=== PATIENT | female | born 1955 | race Two or more races ===

== ENCOUNTER → 2020-12-18 | Outpatient (CLI) | payer MEDICARE | END | disposition home or self-care (01) | LOC: RADMRIMAIN 08:39 | PROVIDERS: ATTEND Nurse Practitioner Family | DX: Z53.9 Procedure and treatment not carried out, unspecified reason (principal) ==

== ENCOUNTER → 2023-05-23 | Outpatient (CLI) | payer MEDICARE ==
[2023-05-23 17:29] LABS: ALT 21 U/L (8-44); AST 21 U/L (13-35); Albumin 4.4 d/dL (3.8-4.9); Albumin/Globulin Ratio 1.83 Ratio (1.60-3.17); Alkaline Phosphatase 83 U/L (41-126); BUN/Creat Ratio 16.57 Ratio (12.00-20.00); Blood Urea Nitrogen 11.6 mg/dL (9.0-27.0); Calcium 9.8 mg/dL (8.7-10.3); Carbon Dioxide 26.5 mmol/L (21.6-31.8); Chloride 105 mmol/L (96-109); Chol/HDL Ratio 3.54 Ratio; Globulin 2.4 d/dL (1.6-3.3); Glucose 97 mg/dL (70-110); Potassium 4.4 mmol/L (3.5-5.5); Sodium 143 mmol/L (135-145); Total Bilirubin 0.5 mg/dL (0.3-1.2); Total Protein 6.8 d/dL (6.2-8.2)
== END | disposition home or self-care (01) ==
LOC: LABWHC1 09:53
PROVIDERS: ATTEND Nurse Practitioner Family
DX: I10 Essential (primary) hypertension (principal); E78.5 Hyperlipidemia, unspecified; E66.9 Obesity, unspecified; R73.09 Other abnormal glucose
CPT/HCPCS: 36415; 80053; 80061; 82306; 82607; 82746; 83036; 84443; 85025

== ENCOUNTER → 2023-05-25 | Outpatient (CLI) | payer MEDICARE ==
[2023-05-25 15:54] LABS: Basophils # (A) 0.05 X 10*3/uL (0.00-0.10); Basophils % (A) 0.6 %; Eosinophils # (A) 0.19 X 10*3/uL (0.04-0.35); Eosinophils % (A) 2.2 %; HCT 43.1 % (37.2-46.3); HGB 13.9 d/dL (12.0-15.0); Lymphocytes # (A) 2.23 X 10*3/uL (0.90-5.00); Lymphocytes % (A) 25.3 %; MCH 29.5 pg (27.0-32.0); MCHC 32.3 d/dL (32.0-37.0); MCV 91.5 FL (80.0-97.0); Mean Platelet Volume 10.9 FL (9.5-12.2); Monocytes # (A) 0.72 X 10*3/uL (0.20-1.00); Monocytes % (A) 8.2 %; NRBC Per 100 WBC 0 X 10*3/uL (0.00-0.01); Neutrophils # (A) 5.61 X 10*3/uL (1.80-7.70); Neutrophils % (A) 63.5 %; Platelet Count 286 X 10*3/uL (140-440); RBC 4.71 X 10*6/uL (4.10-5.20); RDW 12.6 % (11.5-14.5); WBC 8.82 X 10*3/uL (4.50-10.00)
== END | disposition home or self-care (01) ==
LOC: LABWHC1 09:05
PROVIDERS: ATTEND Nurse Practitioner Family
DX: I10 Essential (primary) hypertension (principal); E78.5 Hyperlipidemia, unspecified; E66.9 Obesity, unspecified; R73.09 Other abnormal glucose
CPT/HCPCS: 36415; 85025

== ENCOUNTER → 2024-03-06 | Day surgery (SDC) | payer MEDICARE ==
[~2024-03-06] MED LIST: PROPOFOL 10 MG/ML 20 ML VIAL IV ONE
--- NOTE | 2024-03-06 08:07 | P.GSHP ---
History of Present Illness H&P Date: 03/06/24 CHIEF COMPLAINT: Colon screen HISTORY OF PRESENT ILLNESS: The patient is a 68-year-old female who presents for colon screen. Lower endoscopy was offered for further evaluation and management. PAST MEDICAL HISTORY: Please see list. PAST SURGICAL HISTORY: Please see list. MEDICATIONS: Please see list. ALLERGIES: Please see list. SOCIAL HISTORY: No illicit drug use FAMILY HISTORY: No reports of Crohn disease or ulcerative colitis. REVIEW OF ORGAN SYSTEMS: CONSTITUTIONAL: No reports of fevers or chills. PHYSICAL EXAM: VITAL SIGNS: Stable GENERAL: Well-developed pleasant in no acute distress. HEENT: No scleral icterus. Extraocular movements grossly intact. Moist buccal mucosa. NECK: Supple without lymphadenopathy. CHEST: Unlabored respirations. Equal bilateral excursions. CARDIOVASCULAR: Regular rate and rhythm. Distal 2+ pulses. ABDOMEN: Soft, nontender, nondistended. MUSCULOSKELETAL: No clubbing, cyanosis, or edema. ASSESSMENT: 1. Colon screen. PLAN: 1. Recommend proceeding with a lower endoscopy Past Medical History Past Medical History: Eye Disorder, Hyperlipidemia, Hypertension Additional Past Medical History / Comment(s): early macular degeneration History of Any Multi-Drug Resistant Organisms: None Reported Past Surgical History: Appendectomy, Hysterectomy Additional Past Surgical History / Comment(s): colonoscopy Past Anesthesia/Blood Transfusion Reactions: No Reported Reaction Smoking Status: Former smoker - Past Family History Father Family Medical History: Cancer Additional Family Medical History / Comment(s): of lung cancer Sister(s) Family Medical History: Diabetes Mellitus Medications and Allergies Home Medications Medication Instructions Recorded Confirmed Type Amlodipine Besylate/Valsartan 1 tab PO QAM 03/04/24 03/04/24 History [Amlodipine Besylate/Valsartan 10-160 mg] Aspirin [[place] Aspirin EC] 81 mg PO QAM 03/04/24 03/04/24 History Calcium Carbonate [Calcium] 2 tab PO QAM 03/04/24 03/04/24 History Cholecalciferol (Vitamin D3) 50 mcg PO QAM 03/04/24 03/04/24 History [Vitamin D3 (50 Mcg = 2000 Iu) Chew Tab] Multivit/Iron Sulf/Folic Acid 1 each PO QA 03/04/24 03/04/24 History [Multivitamin with Iron] Rosuvastatin Calcium 10 mg PO 03/04/24 03/04/24 History Vit C/E/Zn/Coppr/Lutein/Zeaxan 2 tab PO QAM 03/04/24 03/04/24 History [Preservision Areds 2 Softgel] Allergies Allergy/AdvReac Type Severity Reaction Status Date / Time No Known Allergies Allergy Verified 03/04/24 11:36
[2024-03-06 08:18] VITALS: TEMP 96.9
[2024-03-06] MEDS: LACTATED RINGERS 1,000 ML IV SCH (08:20)
--- NOTE | 2024-03-06 09:28 | P.PCN ---
Date of Procedure: 03/06/24 Description of Procedure: PREOPERATIVE DIAGNOSIS: Personal history of colon polyps Colonoscopy screening POSTOPERATIVE DIAGNOSIS: Tubular adenoma ascending colon Tubular adenoma sigmoid colon Pandiverticulosis Sigmoid diverticulosis, severe Internal and external hemorrhoids, grade 4 OPERATION: Colonoscopy to the ileocecal valve and appendiceal orifice, cecum Colonoscopy with cold forceps biopsy SURGEON: Erika Dukes MD. ANESTHESIA: MAC. INDICATIONS: The patient is an 68-year-old female who personal history of colon polyps. Last colonoscopy 5 years. Benefits and risks were described and informed consent was obtained. DESCRIPTION OF PROCEDURE: The patient had undergone SuFLAVE prep. The patient had been brought into the operating room and laid in the left lateral decubitus position. After adequate intravenous sedation, the rectum was examined with 2% lidocaine jelly.External hemorrhoids were encountered. The rectal tone was within normal limits. No lesions were palpated in the rectal vault. An Olympus colonoscope was advanced until the cecum, ileocecal valve and appendiceal orifice were clearly viewed. The prep was fair. Sigmoid diverticulosis, severe was encountered. Pandiverticulosis colonic polyps were found and removed. No evidence of focal colitis was found. Retroflexion of the scope demonstrated grade 4 internal hemorrhoids without active bleeding or inflammation. The colon was desufflated. The patient had tolerated the procedure well. Withdrawal time was over 6 minutes. FINDINGS: Aronchick preparation quality scale 3 (1-5) Internal hemorrhoids, grade 4 with recent inflammation and bleeding External hemorrhoids, grade 4. No arteriovenous malformations. Sigmoid diverticulosis, severe Pandiverticulosis Removal of 2 polyps: - Cold forcep biopsies 20 cm from the anal verge, 5 mm tubulovillous adenoma, sigmoid colon - Cold forcep biopsy ascending colon, ascending colon No focal colitis. RECOMMENDATIONS: 1. Repeat colonoscopy 3 years, 2026 2. May benefit from hemorrhoidectomy, stapled Plan - Discharge Summary Discharge Rx Participant: Yes New Discharge Prescriptions: Continue Aspirin [[place] Aspirin EC] 81 mg PO QAM Amlodipine Besylate/Valsartan [Amlodipine Besylate/Valsartan 10-160 mg] 1 tab PO QAM Cholecalciferol (Vitamin D3) [Vitamin D3 (50 Mcg = 2000 Iu) Chew Tab] 50 mcg PO QAM Rosuvastatin Calcium 10 mg PO HS Multivit/Iron Sulf/Folic Acid [Multivitamin with Iron] 1 each PO QAM Calcium Carbonate [Calcium] 2 tab PO QAM Vit C/E/Zn/Coppr/Lutein/Zeaxan [Preservision Areds 2 Softgel] 2 tab PO QAM Discharge Medication List Amlodipine Besylate/Valsartan [Amlodipine Besylate/Valsartan 10-160 mg] 1 tab PO QAM 03/04/24 [History] Aspirin [[place] Aspirin EC] 81 mg PO QAM 03/04/24 [History] Calcium Carbonate [Calcium] 2 tab PO QAM 03/04/24 [History] Cholecalciferol (Vitamin D3) [Vitamin D3 (50 Mcg = 2000 Iu) Chew Tab] 50 mcg PO QAM 03/04/24 [History] Multivit/Iron Sulf/Folic Acid [Multivitamin with Iron] 1 each PO QAM 03/04/24 [History] Rosuvastatin Calcium 10 mg PO HS 03/04/24 [History] Vit C/E/Zn/Coppr/Lutein/Zeaxan [Preservision Areds 2 Softgel] 2 tab PO QAM 03/04/24 [History] Follow up Appointment(s)/Referral(s): Erika Dukes MD [STAFF PHYSICIAN] - 04/15/24 10:00 am Patient Instructions/Handouts: Hemorrhoids (DC), Diverticulosis Diet (GEN), Di verticulosis (ED), Colorectal Polyps (GEN) Activity/Diet/Wound Care/Special Instructions: Colonoscopy 3 years, 2026 Discharge Disposition: HOME SELF-CARE
[2024-03-06 10:13] VITALS: BP 122/69; PULSE 57; RESP 14
== END | disposition home or self-care (01) ==
LOC: ORWHC2ENDO 07:57
PROVIDERS: ATTEND Surgery Plastic and Reconstructive Surgery
DX: Z12.11 Encounter for screening for malignant neoplasm of colon (principal); D12.2 Benign neoplasm of ascending colon; D12.5 Benign neoplasm of sigmoid colon; K64.4 Residual hemorrhoidal skin tags; K64.3 Fourth degree hemorrhoids; K57.30 Diverticulosis of large intestine without perforation or abscess without bleeding; I10 Essential (primary) hypertension; E78.5 Hyperlipidemia, unspecified; Z87.891 Personal history of nicotine dependence; Z90.49 Acquired absence of other specified parts of digestive tract; Z90.710 Acquired absence of both cervix and uterus; Z86.010 Personal history of colon polyps
CPT/HCPCS: 88305; 45380; J2704

== ENCOUNTER 2024-07-22 23:35 | Observation (INO) | payer MEDICARE ==
[2024-07-22] MEDS ORDERED: HEPARIN SODIUM 1,000 UN/ML (10ML VL) IV PRN (23:59)
--- NOTE | 2024-07-23 00:11 | ED ---
Chest Pain HPI - General Chief Complaint: Chest Pain Stated Complaint: Racing Heart, Fall, Dizziness Time Seen by Provider: 07/22/24 23:44 Source: patient Mode of arrival: ambulatory Limitations: no limitations - History of Present Illness Initial Comments: 68-year-old female presenting with chief complaint of palpitations. She states that earlier tonight if folic her heart was racing. States that she would get a sensation of numbness and tingling starting at her head and going down her body. She was also feeling dizzy. She did fall, did not hit her head as she landed on her right arm and left hip. She has no history of A-fib or other dysrhythmia. No chest pain. No difficulty breathing. No lower extremity swelling. - Related Data Home Medications Medication Instructions Recorded Confirmed Amlodipine Besylate/Valsartan 1 tab PO QAM 03/04/24 03/06/24 [Amlodipine Besylate/Valsartan 10-160 mg] Aspirin [[place] Aspirin EC] 81 mg PO QAM 03/04/24 03/06/24 Calcium Carbonate [Calcium] 2 tab PO QAM 03/04/24 03/06/24 Cholecalciferol (Vitamin D3) 50 mcg PO QAM 03/04/24 03/06/24 [Vitamin D3 (50 Mcg = 2000 Iu) Chew Tab] Multivit/Iron Sulf/Folic Acid 1 each PO QAM 03/04/24 03/06/24 [Multivitamin with Iron] Rosuvastatin Calcium 10 mg PO HS 03/04/24 03/06/24 Vit C/E/Zn/Coppr/Lutein/Zeaxan 2 tab PO QAM 03/04/24 03/06/24 [Preservision Areds 2 Softgel] Allergies Allergy/AdvReac Type Severity Reaction Status Date / Time No Known Allergies Allergy Verified 07/22/24 23:42 Review of Systems ROS Statement: Those systems with pertinent positive or pertinent negative responses have been documented in the HPI. ROS Other: All systems not noted in ROS Statement are negative. EKG Findings - EKG Comments: EKG Findings:: Atrial fibrillation with RVR. Ventricular rate 105. QRS 98. QT 303. QTc 364. Past Medical History Past Medical History: Eye Disorder, Hyperlipidemia, Hypertension Additional Past Medical History / Comment(s): early macular degeneration History of Any Multi-Drug Resistant Organisms: None Reported Past Surgical History: Appendectomy, Hysterectomy Additional Past Surgical History / Comment(s): colonoscopy Past Anesthesia/Blood Transfusion Reactions: No Reported Reaction Past Psychological History: No Psychological Hx Reported Smoking Status: Former smoker - Past Family History Father Family Medical History: Cancer Additional Family Medical History / Comment(s): of lung cancer Sister(s) Family Medical History: Diabetes Mellitus General Exam Limitations: no limitations General appearance: alert, in no apparent distress Head exam: Present: atraumatic, normocephalic, normal inspection Eye exam: Present: normal appearance, EOMI Neck exam: Present: normal inspection. Absent: meningismus Respiratory exam: Present: normal lung sounds bilaterally. Absent: respiratory distress, wheezes, rales, rhonchi, stridor Cardiovascular Exam: Present: tachycardia, irregular rhythm Extremities exam: Absent: pedal edema Neurological exam: Present: alert, oriented X3 Psychiatric exam: Present: normal affect, normal mood Skin exam: Present: warm, dry Course Vital Signs 07/22/24 07/22/24 07/23/24 23:38 23:56 00:30 Temperature 97.5 F L Pulse Rate 75 103 H 110 H Respiratory 18 20 18 Rate Blood Pressure 135/76 133/91 108/91 O2 Sat by Pulse 96 96 96 Oximetry 07/23/24 07/23/24 00:44 01:40 Temperature Pulse Rate 79 75 Respiratory 18 18 Rate Blood Pressure 104/78 119/96 O2 Sat by Pulse 100 100 Oximetry Chest Pain MDM - MDM Was pt. sent in by a medical professional or institution (, PA, SECTION MAINTAINER, urgent care, hospital, or care home...) When possible be specific @ -No Did you speak to anyone other than the patient for history (EMS, parent, family, police, friend...)? What history was obtained from this source @ -No Did you review nursing and triage notes (agree or disagree)? Why? @ -I reviewed and agree with nursing and triage notes Were old charts reviewed (outside hosp., previous admission, EMS record, old EKG, old radiological studies, urgent care reports/EKG's, care home records)? Report findings @ -No old charts were reviewed Differential Diagnosis (chest pain, altered mental status, abdominal pain women, abdominal pain men, vaginal bleeding, weakness, fever, dyspnea, syncope, headache, dizziness, GI bleed, back pain, seizure, CVA, palpatations, mental health, musculoskeletal)? @ -Differential Palpitations Ventricular arrhythmias, atrial arrhythmias, myocardial infarction, anemia, thyrotoxicosis, electrolyte imbalance, hypokalemia, pulmonary embolism, pulmonary disease, drugs, alcohol, anxiety, stress.... This is not meant to be an all-inclusive list. EKG interpreted by me (3pts min.). @ -EKG initially read as atrial fibrillation, however by my interpretation this does not seem correct. After repeat EKGs it appears that the patient is converting into SVT X-rays interpreted by me (1pt min.). @ -Chest x-ray shows no acute process CT interpreted by me (1pt min.). @ -None done U/S interpreted by me (1pt. min.). @ -None done What testing was considered but not performed or refused? (CT, X-rays, U/S, labs)? Why? @ -None What meds were considered but not given or refused? Why? @ -None Did you discuss the management of the patient with other professionals (professionals i.e. , PA, SECTION MAINTAINER, lab, RT, psych nurse, mental health social worker, diesel instructor, teacher, parking regulation enforcement officer, insurance case manager)? Give summary @ -Spoke with Dr. Alcantara who accepts admission Was smoking cessation discussed for >3mins.? @ -No Was critical care preformed (if so, how long)? @ -No Were there social determinants of health that impacted care today? How? (Homelessness, low income, unemployed, alcoholism, drug addiction, transportation, low edu. Level, literacy, decrease access to med. care, group home, rehab)? @ -No Was there de-escalation of care discussed even if they declined (Discuss DNR or withdrawal of care, Hospice)? DNR status @ -No What co-morbidities impacted this encounter? (DM, HTN, Smoking, COPD, CAD, Cancer, CVA, ARF, Chemo, Hep., AIDS, mental health diagnosis, sleep apnea, morbid obesity)? @ -None Was patient admitted / discharged? Hospital course, mention meds given and r oute, prescriptions, significant lab abnormalities, going to OR and other pertinent info. @ -68-year-old female presenting with chief complaint of palpitations and dizziness. History and physical examination are conducted. Patient converts into episodes of tachycardia reaching up to the 160-180 range, appears to be SVT. Chest x-ray shows no acute process and lab work requires no immediate acti on. Patient was started on Cardizem and rate of 5 mg/h. She will be admitted with cardiology consultation. Patient is agreeable with this plan. I discussed this case with my attending Dr. Osman Undiagnosed new problem with uncertain prognosis? @ -No Drug Therapy requiring intensive monitoring for toxicity (Heparin, Nitro, Insulin, Cardizem)? @ -No Were any procedures done? @ -No Diagnosis/symptom? @ -Symptomatic SVT Acute, or Chronic, or Acute on Chronic? @ -Acute Uncomplicated (without systemic symptoms) or Complicated (systemic symptoms)? @ -Complicated Side effects of treatment? @ -No Exacerbation, Progression, or Severe Exacerbation? @ -No Poses a threat to life or bodily function? How? (Chest pain, [place], [place], pneumonia, PE, COPD, DKA, ARF, appy, cholecystitis, CVA, Diverticulitis, Homicidal, Suicidal, threat to staff... and all critical care pts) @ -Yes Disposition Clinical Impression: SVT (supraventricular tachycardia) Disposition: ADMITTED IP TO THIS HOSP Condition: Fair Referrals: Esperanza Arnold MD [Primary Care Provider] - 1-2 days Time of Disposition: 01:10
[2024-07-23 00:23] LABS: Basophils # (A) 0.1 k/uL (0-0.2); Basophils % (A) 0 %; Eosinophils # (A) 0.2 k/uL (0-0.7); Eosinophils % (A) 1 %; HCT 45.1 % (34.0-46.0); HGB 14.3 gm/dL (11.4-16.0); Lymphocytes # (A) 2.2 k/uL (1.0-4.8); Lymphocytes % (A) 16 %; MCH 29.7 pg (25.0-35.0); MCHC 31.7 g/dL (31.0-37.0); MCV 93.9 fL (80.0-100.0); Mean Platelet Volume 7.9; Monocytes # (A) 0.7 k/uL (0-1.0); Monocytes % (A) 5 %; Neutrophils # (A) 10.1 k/uL (1.3-7.7); Neutrophils % (A) 75 %; Platelet Count 300 k/uL (150-450); RDW 12.3 % (11.5-15.5); WBC 13.5 k/uL (3.8-10.6)
--- NOTE | 2024-07-23 00:23 | XR ---
EXAMINATION TYPE: XR chest 2V DATE OF EXAM: 07/23/2024 COMPARISON: NONE HISTORY: Chest pain TECHNIQUE: Frontal and lateral views of the chest are obtained. FINDINGS: There is no focal air space opacity, pleural effusion, or pneumothorax seen. The cardiac silhouette size is within normal limits. The osseous structures are intact. Overlying EKG leads are seen. IMPRESSION: No acute cardiopulmonary process. [facility], , 07/23/2024 12:21 AM
[2024-07-23] MEDS: HEPARIN SOD,PORK IN 0.45% NACL 25,000 UNIT in 0.45% NACL 1 250ML.BAG IV SCH (00:36)
[2024-07-23] MEDS: HEPARIN SODIUM 1,000 UN/ML (10ML VL) IV ONE (00:37)
[2024-07-23 00:42] LABS: ALT 17 U/L (4-34); AST 25 U/L (14-36); African American GFR (CKD) >90 (>60 ml/min/1.73 sqM); Albumin 4.2 g/dL (3.5-5.0); Alkaline Phosphatase 68 U/L (38-126); Anion Gap 7 mmol/L; Blood Urea Nitrogen 19 mg/dL (7-17); Calcium 9.7 mg/dL (8.4-10.2); Carbon Dioxide 22 mmol/L (22-30); Chloride 112 mmol/L (98-107); Glucose 110 mg/dL (74-99); Non-African American GFR(CKD) >90 (>60 ml/min/1.73 sqM); Potassium 4.3 mmol/L (3.5-5.1); Sodium 141 mmol/L (137-145); Total Bilirubin 0.4 mg/dL (0.2-1.3); Total Protein 6.8 g/dL (6.3-8.2)
[2024-07-23] MEDS: DILTIAZEM 125 MG in SODIUM CHLORIDE 0.9% 100 ML IV SCH (00:45)
[2024-07-23 00:54] LABS: INR 0.9 (<1.2); Partial Thromboplastin Time 27.7 sec (22.0-30.0); Prothrombin Time 10.4 sec (10.0-12.5)
[2024-07-23] MEDS ORDERED: NALOXONE 0.4 MG/ML 1 ML VIAL IV PRN (01:08)
[2024-07-23] MEDS: SODIUM CHLORIDE 0.9% 1,000 ML IV SCH (01:33)
--- NOTE | 2024-07-23 02:55 | P.HPIM ---
History of Present Illness H&P Date: 07/23/24 Patient is a 68-year-old female with a history of hypertension and hyperlipidemia who came in for palpitations. She reported that 2 days prior on 07/21 she had an episode of "feeling unwell "and felt that her "heart was racing " while having a meal. The episode lasted for a few minutes and did not recur during that day. However on 07/22, another episode of palpitations began, she reported that this episode was longer and had an associated lightheadedness that led to the patient falling to the ground with no loss of consciousness which led her to seek care in the ED. She does report a mild lower chest tightness associated with palpitations but denied nausea and vomiting, diaphoresis, weakness, tremors, changes in vision, facial asymmetry, shortness of breath, or leg pain. She reported that she drinks a minimal 3-4 cups of coffee daily, has no recent stressors, and only drinks alcohol 1-3 times a month. In the emergency room, chest x-ray showed no acute process, EKG showed tachyarrhythmia, likely SVT at 184 bpm. WBC 13.5, hemoglobin 14.3, platelet 300, PT 10.4, INR 0.9, PTT 27.7, sodium 141, potassium 4.3, chloride 112, BUN 19, creatinine 0.63, glucose 110, calcium 9.7, magnesium 2, troponin less than 0.012, TSH 1.44. On admission patient was afebrile at 97.5 Fahrenheit pulse rate 75 respiratory rate 18 blood pressure 135/76 oxygen saturation 97% on room air ED documentation reviewed and case discussed with ED provider. Review of systems: Pertinent positives and negatives as discussed in HPI, a complete review of systems was performed and all other systems are negative. Family history: Mother known to have hypertension. Father known to have lung cancer. Social history: Tobacco: Former smoker quit 31 years ago. Smoked 1.5 pack/day for 20 years Alcohol: 1-2 drinks per month Recreational drugs: No illicit drug use Travel: No recent travel Occupation: Retired Physical examination: Vital signs reviewed General: non toxic, no distress, appears at stated age, normal weight Derm: no unusual rashes/lesions, warm Head: atraumatic, normocephalic, symmetric Eyes: EOMI, no lid lag, anicteric sclera, pupils equal round reactive to light ENT: Nose and ears atraumatic Neck: No cervical lymphadenopathy, trachea midline, supple Mouth: no lip lesion, mucus membranes moist Cardiovascular: S1S2 tachycardic, no murmur Lungs: CTA bilateral, no rhonchi, no rales, no accessory muscle use Abdominal: soft, nontender to palpation, no guarding Ext: muscle strength 5 out of 5 in all 4 extremities grossly, no gross muscle atrophy, no contractures, positive dorsalis pedis pulse bilateral, no edema Neuro: CN II-XI grossly intact, no gross focal neuro deficits Psych: Alert, oriented, appropriate affect and mood Assessment/Plan: #. Supraventricular tachycardia -Patient drinks high amount of caffeine daily. -Cardiac monitoring -Fall precautions -Cardizem infusion initiated -Trend troponins -Consult cardiology -Echocardiogram -Patient educated on decreasing caffeine consumption. -Patient had multiple brief runs w/ rate consistently 184 bpm. Not responsive to valsalva or carotid massage #. Leukocytosis, suspect reactive -No signs of infection at this time Chronic conditions: Hypertension, hyperlipidemia -Resume home medications once reconciled DVT prophylaxis: SCD The patient is admitted with an anticipated greater than than 2 midnight stay for evaluation of SVT CODE STATUS: Full Discussed with: Patient and patient's Anticipated discharge place: Home Past Medical History Past Medical History: Eye Disorder, Hyperlipidemia, Hypertension Additional Past Medical History / Comment(s): early macular degeneration History of Any Multi-Drug Resistant Organisms: None Reported Past Surgical History: Appendectomy, Hysterectomy Additional Past Surgical History / Comment(s): colonoscopy Past Anesthesia/Blood Transfusion Reactions: No Reported Reaction Past Psychological History: No Psychological Hx Reported Smoking Status: Former smoker - Past Family History Father Family Medical History: Cancer Additional Family Medical History / Comment(s): of lung cancer Sister(s) Family Medical History: Diabetes Mellitus Medications and Allergies Home Medications Medication Instructions Recorded Confirmed Type Amlodipine Besylate/Valsartan 1 tab PO QAM 03/04/24 03/06/24 History [Amlodipine Besylate/Valsartan 10-160 mg] Aspirin [[place] Aspirin EC] 81 mg PO QAM 03/04/24 03/06/24 History Calcium Carbonate [Calcium] 2 tab PO QAM 03/04/24 03/06/24 History Cholecalciferol (Vitamin D3) 50 mcg PO QAM 03/04/24 03/06/24 History [Vitamin D3 (50 Mcg = 2000 Iu) Chew Tab] Multivit/Iron Sulf/Folic Acid 1 each PO QAM 03/04/24 03/06/24 History [Multivitamin with Iron] Rosuvastatin Calcium 10 mg PO HS 03/04/24 03/06/24 History Vit C/E/Zn/Coppr/Lutein/Zeaxan 2 tab PO QAM 03/04/24 03/06/24 History [Preservision Areds 2 Softgel] Allergies Allergy/AdvReac Type Severity Reaction Status Date / Time No Known Allergies Allergy Verified 07/22/24 23:42 Physical Exam Vitals: Vital Signs Temp Pulse Resp BP Pulse Ox 07/23/24 01:40 75 18 119/96 100 07/23/24 00:44 79 18 104/78 100 07/23/24 00:30 110 H 18 108/91 96 07/22/24 23:56 103 H 20 133/91 96 07/22/24 23:38 97.5 F L 75 18 135/76 96 Intake and Output 07/22/24 07/22/24 07/23/24 14:59 22:59 06:59 Intake Total 4.417 Balance 4.417 Intake: Intake, IV Titration 4.417 Amount Diltiazem 125 mg In 4.417 Sodium Chloride 0.9% 100 ml @ 5 MG/HR 5 mls/hr IV .Q24H [facility] Rx#:[id number] Other: Weight 80.739 kg Results CBC & Chem 7: 07/22/24 23:59 07/22/24 23:59 Labs: Abnormal Lab Results - Last 24 Hours (Table) 07/22/24 07/22/24 Range/Units 23:59 23:59 WBC 13.5 H (3.8-10.6) k/uL Neutrophils # 10.1 H (1.3-7.7) k/uL Chloride 112 H (98-107) mmol/L BUN 19 H (7-17) mg/dL Glucose 110 H (74-99) mg/dL
[2024-07-23] MEDS: LOSARTAN 25 MG TAB PO SCH (09:17)
[2024-07-23] MEDS: METOPROLOL SUCCINATE (ER) 50 MG TAB.ER.24H PO SCH (09:18)
[2024-07-23] MEDS: APIXABAN 5 MG TAB PO SCH (09:18)
--- NOTE | 2024-07-23 11:25 | P.CRDCN ---
History of Present Illness Consult date: 07/23/24 Reason for Consult (text): SVT History of present illness: Dr. Edward's addendum Impression Atrial fibrillation, paroxysmal, symptomatic. Newly diagnosed July 2024 Essential hypertension Dyslipidemia Obesity Plan We had a detailed discussion about need for systemic anticoagulation because of elevated [id number] of 3. Patient understands the risk factor of stroke and also understands the risk of bleeding from the blood thinners. She agrees to be on blood thinner. Will start Eliquis 5 mg p.o. twice daily Reduce losartan to 25 mg daily Start metoprolol succinate 50 mg twice daily Obtain echocardiogram Monitor telemetry, if patient's heart rate is controlled and she is symptomatically better okay to discharge on rate control strategy. Obtain TSH level, HbA1c, NT-proBNP Would recommend outpatient stress testing and further rhythm control strategy. Patient is a 68 year old female with past medical history of hypertension and hyperlipidemia who presented to the ED for palpitations and lightheadedness. She reported having an episode of "heart was racing" about 2 days ago while having a meal. She never had anything like this before. No history of heart arrythmia, prior heart attacks, or strokes. She does see Dr. Viveros for a heart murmur and hypertension. She also reported noticing another episode of racing heartbeat yesterday and became lightheaded and had a fall. She did not lose any consciousness, hit her head, or pass out. She was seen this morning in the ED, reports her heart is still beating pretty fast, but denies chest pain, shortness of breath, nausea, vomiting, diarrhea, belly pain. She had several episodes where her heart rate would increase up to 170s, but slowed down with valsalva maneuver. While in the ED, EKG showed tachyarrhythmia, likely SVT, and CXR showed no acute pulmonary processes. Troponin was less than 0.012. ROS: 14 points ROS negative except those mentioned in the HPI PMH: Hypertension and Hyperlipidemia PSH: Appendectomy and Hysterectomy Social History: Former smoker quite 30 years ago Family History: Mother had hypertension. Father had lung cancer. Physical Exam: General: Alert and oriented, not in acute distress Cardiovascular: Tachycardia, no murmurs noted Respiratory: Clear to auscultation bilaterally, no wheezing/rhonchi/stridor Abdominal: Soft, nontender to palpation, nondistended Extremity: No leg swelling noted bilaterally Past Cardiac workup: No records of previous echocardiogram, stress tests, or cardiac caths. Impression: SVT New onset Atrial fibrillation Leukocytosis Hypertension Hyperlipidemia Plan: - Continue medical management. Start metoprolol succinate 50 mg bid, eliquis 5 mg po bid, losartan 25 mg po daily - plan for an echocardiogram - Hold home BP meds - Discontinue heparin - Continue to monitor hopefully will discharge tmr. Past Medical History Past Medical History: Eye Disorder, Hyperlipidemia, Hypertension Additional Past Medical History / Comment(s): early macular degeneration History of Any Multi-Drug Resistant Organisms: None Reported Past Surgical History: Appendectomy, Hysterectomy Additional Past Surgical History / Comment(s): colonoscopy Past Anesthesia/Blood Transfusion Reactions: No Reported Reaction Past Psychological History: No Psychological Hx Reported Smoking Status: Former smoker - Past Family History Father Family Medical History: Cancer Additional Family Medical History / Comment(s): of lung cancer Sister(s) Family Medical History: Diabetes Mellitus Medications and Allergies Home Medications Medication Instructions Recorded Confirmed Type Amlodipine Besylate/Valsartan 1 tab PO QA 03/04/24 07/23/24 History [Amlodipine Besylate/Valsartan 10-160 mg] Aspirin [[place] Aspirin EC] 81 mg PO QAM 03/04/24 07/23/24 History Cholecalciferol (Vitamin D3) 50 mcg PO QAM 03/04/24 07/23/24 History [Vitamin D3 (50 Mcg = 2000 Iu) Chew Tab] Rosuvastatin Calcium 10 mg PO HS 03/04/24 07/23/24 History Calcium Carbonate 2,000 mg PO QAM 07/23/24 07/23/24 History Magnesium Glycinate 400 mg PO HS 07/23/24 07/23/24 History Multivit with Calcium,Iron,Min 1 tab PO QAM 07/23/24 07/23/24 History [Women's Multivitamin] Allergies Allergy/AdvReac Type Severity Reaction Status Date / Time No Known Allergies Allergy Verified 07/23/24 06:59 Physical Exam Vitals: Vital Signs Temp Pulse Resp BP Pulse Ox 07/23/24 07:52 176 H 18 148/100 97 07/23/24 07:10 67 07/23/24 06:33 97 18 125/91 95 07/23/24 04:00 98 18 123/88 95 07/23/24 01:40 75 18 119/96 100 07/23/24 00:44 79 18 104/78 100 07/23/24 00:30 110 H 18 108/91 96 07/22/24 23:56 103 H 20 133/91 96 07/22/24 23:38 97.5 F L 75 18 135/76 96 Intake and Output 07/22/24 07/23/24 07/23/24 22:59 06:59 14:59 Intake Total 43.084 Balance 43.084 Intake: Intake, IV Titration 43.084 Amount Diltiazem 125 mg In 43.084 Sodium Chloride 0.9% 100 ml @ 5 MG/HR 5 mls/hr IV .Q24H [facility] Rx#:[id number] Other: Weight 80.739 kg Results 07/22/24 23:59 07/22/24 23:59 Cardiac Enzymes 07/22/24 07/22/24 07/23/24 Range/Units 23:59 23:59 03:37 AST 25 (14-36) U/L Troponin I <0.012 <0.012 (0.000-0.034) ng/mL 07/23/24 Range/Units 06:14 AST (14-36) U/L Troponin I <0.012 (0.000-0.034) ng/mL Coagulation 07/22/24 Range/Units 23:59 PT 10.4 (10.0-12.5) sec APTT 27.7 (22.0-30.0) sec CBC 07/22/24 Range/Units 23:59 WBC 13.5 H (3.8-10.6) k/uL RBC 4.80 (3.80-5.40) m/uL Hgb 14.3 (11.4-16.0) gm/dL Hct 45.1 (34.0-46.0) % Plt Count 300 (150-450) k/uL Comprehensive Metabolic Panel 07/22/24 Range/Units 23:59 Sodium 141 (137-145) mmol/L Potassium 4.3 (3.5-5.1) mmol/L Chloride 112 H (98-107) mmol/L Carbon Dioxide 22 (22-30) mmol/L BUN 19 H (7-17) mg/dL Creatinine 0.63 (0.52-1.04) mg/dL Glucose 110 H (74-99) mg/dL Calcium 9.7 (8.4-10.2) mg/dL AST 25 (14-36) U/L ALT 17 (4-34) U/L Alkaline Phosphatase 68 (38-126) U/L Total Protein 6.8 (6.3-8.2) g/dL Albumin 4.2 (3.5-5.0) g/dL Current Medications Generic Name Dose Route Start Last Admin Trade Name Freq PRN Reason Stop Dose Admin Apixaban 5 mg 07/23/24 09:00 Apixaban 5 Mg Tab PO BID [facility] Protocol Metoprolol Succinate 50 mg 07/23/24 09:00 Metoprolol Succinate (Er) 50 Mg Tab.Er.24h PO BID [facility] Naloxone HCl 0.2 mg 07/23/24 01:08 Naloxone 0.4 Mg/Ml 1 Ml Vial IV Q2M PRN Opioid Reversal Intake and Output 07/22/24 07/23/24 07/23/24 22:59 06:59 14:59 Intake Total 43.084 Balance 43.084 Intake: Intake, IV Titration 43.084 Amount Diltiazem 125 mg In 43.084 Sodium Chloride 0.9% 100 ml @ 5 MG/HR 5 mls/hr IV .Q24H [facility] Rx#:[id number] Other: Weight 80.739 kg 07/22/24 23:59 07/22/24 23:59
[2024-07-24 04:54] LABS: Basophils % (A) 0 %; Eosinophils # (A) 0.2 k/uL (0-0.7); Eosinophils % (A) 3 %; HGB 13.5 gm/dL (11.4-16.0); Lymphocytes # (A) 2.3 k/uL (1.0-4.8); Lymphocytes % (A) 26 %; MCH 30.5 pg (25.0-35.0); MCHC 32.1 g/dL (31.0-37.0); MCV 95.1 fL (80.0-100.0); Mean Platelet Volume 8.5; Monocytes # (A) 0.5 k/uL (0-1.0); Monocytes % (A) 6 %; Neutrophils # (A) 5.6 k/uL (1.3-7.7); Neutrophils % (A) 64 %; Platelet Count 244 k/uL (150-450); RBC 4.42 m/uL (3.80-5.40); RDW 12.9 % (11.5-15.5); WBC 8.8 k/uL (3.8-10.6)
[2024-07-24 05:06] LABS: Partial Thromboplastin Time 21.2 sec (22.0-30.0); Prothrombin Time 10.9 sec (10.0-12.5)
[2024-07-24 05:37] LABS: ALT 13 U/L (4-34); AST 19 U/L (14-36); African American GFR (CKD) >90 (>60 ml/min/1.73 sqM); Albumin 3.4 g/dL (3.5-5.0); Albumin/Globulin Ratio 1.4; Alkaline Phosphatase 60 U/L (38-126); Anion Gap 5 mmol/L; Blood Urea Nitrogen 16 mg/dL (7-17); Calcium 9.5 mg/dL (8.4-10.2); Carbon Dioxide 21 mmol/L (22-30); Chloride 112 mmol/L (98-107); Globulin 2.5 g/dL; Glucose 87 mg/dL (74-99); Non-African American GFR(CKD) >90 (>60 ml/min/1.73 sqM); Potassium 4.1 mmol/L (3.5-5.1); Sodium 138 mmol/L (137-145); Total Bilirubin 0.7 mg/dL (0.2-1.3); Total Protein 5.9 g/dL (6.3-8.2)
--- NOTE | 2024-07-24 07:04 | CA ---
Transthoracic Echo Report Name: Mary Wild Age: 68 Gender: F : 1955 Exam Date: 07/23/2024 13:32 Exam Location: [place] [facility] Ht (in): 65 Wt (lb): 178 Ordering Physician: Erum Schultz MD Attending/Referring Phys: [employer] Blind Washer Holly Bishop RDCS Procedure CPT: Indications: tachyarrhythmia Cardiac Hx: Technical Quality: Fair Contrast 1: Total Dose (mL): Contrast 2: Total Dose (mL): MEASUREMENTS (Male / Female) Normal Values 2D ECHO LV Diastolic Diameter PLAX 3.5 cm 4.2 - 5.9 / 3.9 - 5.3 cm LV Systolic Diameter PLAX 2.4 cm IVS Diastolic Thickness 1.6 cm 0.6 - 1.0 / 0.6 - 0.9 cm LVPW Diastolic Thickness 1.6 cm 0.6 - 1.0 / 0.6 - 0.9 cm LV Relative Wall Thickness 0.9 RV Internal Dim ED PLAX 4.3 cm LVOT Diameter 1.8 cm LA Volume 58.4 cm??? 18 - 58 / 22 - 52 cm??? LA Volume Index 30.0 cm???/m??? 16 - 28 cm???/m??? M-MODE Aortic Root Diameter MM 3.7 cm LA Systolic Diameter MM 4.5 cm LA Ao Ratio MM 1.2 AV Cusp Separation MM 1.4 cm DOPPLER AV Peak Velocity 181.3 cm/s AV Peak Gradient 13.1 mmHg AV Mean Velocity 126.1 cm/s AV Mean Gradient 7.2 mmHg AV Velocity Time Integral 32.4 cm LVOT Peak Velocity 77.7 cm/s LVOT Peak Gradient 2.4 mmHg LVOT Velocity Time Integral 15.7 cm LVOT Stroke Volume 38.6 cm??? LVOT Stroke Volume Index 20.5 ml/m??? LVOT Cardiac Index 1725.2 cm???/min???m??? AV Area Cont Eq vti 1.2 cm??? AV Area Cont Eq pk 1.1 cm??? MV Area PHT 6.2 cm??? Mitral E Point Velocity 126.2 cm/s Mitral A Point Velocity 1.0 cm/s Mitral E to A Ratio 128.8 MV Deceleration Time 122.7 ms MV E' Velocity 8.0 cm/s Mitral E to MV E' Ratio 15.7 TR Peak Velocity 192.5 cm/s TR Peak Gradient 14.8 mmHg Right Ventricular Systolic Press 19.8 mmHg FINDINGS Left Ventricle Moderately increased left ventricular wall thickness. Left ventricular cavity size normal. No obvious regional wall motion abnormalities. Left ventricular ejection fraction is estimated at 55-60 %. Right Ventricle Right ventricular dilatation. Right ventricular systolic pressure within normal limits. Right Atrium Mild right atrial dilatation. Left Atrium Mildly increased left atrial volume. Mildly increased left atrial area. Mitral Valve Structurally normal mitral valve. Mild mitral annular calcification. Mild mitral regurgitation. Aortic Valve Trileaflet aortic valve. No aortic valve stenosis or regurgitation. Focal thickening of the aortic valve cusps. Tricuspid Valve Structurally normal tricuspid valve. Mild tricuspid regurgitation. Pulmonic Valve Structurally normal pulmonic valve.trace pulmonic regurgitation. Pericardium No pericardial effusion. Aorta Normal size aortic root and proximal ascending aorta. CONCLUSIONS 1. Normal left ventricular size and systolic function 2. Mild mitral and tricuspid regurgitation Previewed by: Dr. Gurjit Viveros MD (Electronically Signed) Final Date: 24 July 2024 07:03
[2024-07-24 07:46] VITALS: BP 124/72; PULSE 56; RESP 17; TEMP 97.7
[2024-07-24] MEDS: METOPROLOL SUCCINATE (ER) 50 MG TAB.ER.24H PO SCH (09:04)
--- NOTE | 2024-07-24 10:15 | P.PN ---
Subjective HISTORY OF PRESENT ILLNESS: Patient examined this morning at the bedside. Patient denies any chest pain or pressure. She denies any shortness of breath. Currently denies any palpitations. EKG this morning reveals sinus bradycardia. Blood pressure stable. Echocardiogram completed revealing ejection fraction 55 to 60% with mild mitral regurgitation and mild tricuspid regurgitation. PHYSICAL EXAM: VITAL SIGNS: Reviewed. GENERAL: Well-developed in no acute distress. NECK: Supple. No JVD or thyromegaly LUNGS: Respirations even and unlabored. Lungs essentially clear to auscultation bilaterally. HEART: Regular rate and rhythm. S1 and S2 heard. EXTREMITIES: Normal range of motion. No clubbing or cyanosis. Peripheral pulses intact. No lower extremity edema ASSESSMENT: Status post mechanical fall without syncope Palpitations New onset paroxysmal atrial fibrillation, currently maintaining sinus mechanism SVT, ruled out Hypertension Hyperlipidemia PLAN: Continue Eliquis and losartan Decrease metoprolol succinate to once daily dosing Resume rosuvastatin Patient does not need to be resumed on aspirin upon discharge Patient is stable for discharge home today from a cardiac standpoint Patient to follow-up postdischarge with Dr. Viveros Nurse practitioner note has been reviewed by physician. Signing provider agrees with the documented findings, assessment, and plan of care documented by SENIOR IT ASSISTANT as a scribe. Objective - Vital Signs Vital signs: Vital Signs Temp 97.7 F 07/24/24 07:16 Pulse 56 L 07/24/24 07:16 Resp 17 07/24/24 07:16 BP 124/72 07/24/24 07:16 Pulse Ox 96 07/24/24 07:16 FiO2 Intake & Output 07/23/24 07/24/24 07/24/24 18:59 06:59 18:59 Intake Total 540 118 Balance 540 118 Weight 80.739 kg Intake: Oral 540 118 Other: Voiding Method Toilet # Voids 1 - Labs CBC & Chem 7: 07/24/24 04:20 07/24/24 04:20 Labs: Abnormal Lab Results - Last 24 Hours (Table) 07/24/24 07/24/24 Range/Units 04:20 04:20 APTT 21.2 L (22.0-30.0) sec Chloride 112 H (98-107) mmol/L Carbon Dioxide 21 L (22-30) mmol/L Total Protein 5.9 L (6.3-8.2) g/dL Albumin 3.4 L (3.5-5.0) g/dL
--- NOTE | 2024-07-24 13:56 | P.DS ---
Providers Date of admission: 07/23/24 01:09 Expected date of discharge: 07/24/24 Attending physician: Arturo Alcantara MD Consults: 07/23/24 01:08 Consult Physician Urgent Consulting Provider: [facility] Consult Reason/Comments: svt Do you want consulting provider notified?: Yes, Notify in am Primary care physician: [place] Hospital Course: Discharge diagnoses; #New onset paroxysmal A-fib #Leukocytosis, reactive #Hypertension #hyperlipidemia Hospital course; Patient is a 68-year-old female with a history of hypertension and hyperlipidemia who came in for palpitations. She reported that 2 days prior on 07/21 she had an episode of "feeling unwell "and felt that her "heart was racing " while having a meal. The episode lasted for a few minutes and did not recur during that day. However on 07/22, another episode of palpitations began, she reported that this episode was longer and had an associated lightheadedness that led to the patient falling to the ground with no loss of consciousness which led her to seek care in the ED. She does report a mild lower chest tightness associated with palpitations but denied nausea and vomiting, diaphoresis, weakness, tremors, changes in vision, facial asymmetry, shortness of breath, or leg pain. She reported that she drinks a minimal 3-4 cups of coffee daily, has no recent stressors, and only drinks alcohol 1-3 times a month. In the emergency room, chest x-ray showed no acute process, EKG showed tachyarrhythmia, likely SVT at 184 bpm. WBC 13.5, hemoglobin 14.3, platelet 300, PT 10.4, INR 0.9, PTT 27.7, sodium 141, potassium 4.3, chloride 112, BUN 19, creatinine 0.63, glucose 110, calcium 9.7, magnesium 2, troponin less than 0.012, TSH 1.44. On admission patient was afebrile at 97.5 Fahrenheit pulse rate 75 respiratory rate 18 blood pressure 135/76 oxygen saturation 97% on room air. During hospital stay patient was treated for new onset paroxysmal atrial fibri llation and S/P mechanical fall without syncope. Patient was noted to have a tachyarrhythmia, suspected SVT with numerous brief episodes lasting for several minutes at a time. The episodes were not responsive to Valsalva or carotid massage. Patient denies any prior history of such symptoms. She is admitted with cardiology consulted, echocardiogram ordered. Patient does admit to gemini nking 4 cups of coffee daily. Patient was initiated on Cardizem infusion. Found to have A-fib. SVT was ruled out. She was treated with Eliquis, metoprolol succinate. Echocardiogram revealed ejection fraction 55 to 60% with mild mitral regurgitation and mild tricuspid regurgitation. Patient is discharged to home in stable condition. Patient is discharged with losartan 25 mg daily, Eliquis 5 mg twice daily, metoprolol succinate 50 mg daily. She will discontinue aspirin 81 mg and amlodipinevalsartan. She has to follow-up with her PCP and cardiology on discharge. Physical examination: Vital signs reviewed General: non toxic, no distress, appears at stated age, normal weight Derm: no unusual rashes/lesions, warm Head: atraumatic, normocephalic, symmetric Eyes: EOMI, no lid lag, anicteric sclera, pupils equal round reactive to light ENT: Nose and ears atraumatic Neck: No cervical lymphadenopathy, trachea midline, supple Mouth: no lip lesion, mucus membranes moist Cardiovascular: S1S2 tachycardic, no murmur Lungs: CTA bilateral, no rhonchi, no rales, no accessory muscle use Abdominal: soft, nontender to palpation, no guarding Ext: muscle strength 5 out of 5 in all 4 extremities grossly, no gross muscle atrophy, no contractures, positive dorsalis pedis pulse bilateral, no edema Neuro: CN II-XI grossly intact, no gross focal neuro deficits Psych: Alert, oriented, appropriate affect and mood Dictation was produced using [employer] dictation software. please excuse any grammatical, word or spelling errors. I saw and evaluated the patient during the sheehan and critical portions of this encounter along side the resident. The assessment and plan was discussed with the resident as below. Patient with no complaints today. Continue Metoprolol 50 mg PO QD and Eliquis 5 mg PO BID. Follow up with Cardiology within 1 week and PCP within 1-2 days. Patient Condition at Discharge: Stable Plan - Discharge Summary New Discharge Prescriptions: New Losartan [Cozaar] 25 mg PO DAILY #30 tab Apixaban [Eliquis] 5 mg PO BID #60 tab Metoprolol Succinate (ER) [Toprol XL] 50 mg PO DAILY #30 tab Continue Cholecalciferol (Vitamin D3) [Vitamin D3 (50 Mcg = 2000 Iu) Chew Tab] 50 mcg PO QAM Calcium Carbonate 2,000 mg PO QAM Magnesium Glycinate 400 mg PO HS Rosuvastatin Calcium 10 mg PO HS Multivit with Calcium,Iron,Min [Women's Multivitamin] 1 tab PO QAM Discontinued Aspirin [[place] Aspirin EC] 81 mg PO QAM Amlodipine Besylate/Valsartan [Amlodipine Besylate/Valsartan 10-160 mg] 1 tab PO QAM Discharge Medication List Cholecalciferol (Vitamin D3) [Vitamin D3 (50 Mcg = 2000 Iu) Chew Tab] 50 mcg PO QAM 03/04/24 [History] Rosuvastatin Calcium 10 mg PO HS 03/04/24 [History] Calcium Carbonate 2,000 mg PO QAM 07/23/24 [History] Magnesium Glycinate 400 mg PO HS 07/23/24 [History] Multivit with Calcium,Iron,Min [Women's Multivitamin] 1 tab PO QAM 07/23/24 [History] Apixaban [Eliquis] 5 mg PO BID #60 tab 07/24/24 [Rx] Losartan [Cozaar] 25 mg PO DAILY #30 tab 07/24/24 [Rx] Metoprolol Succinate (ER) [Toprol XL] 50 mg PO DAILY #30 tab 07/24/24 [Rx] Follow up Appointment(s)/Referral(s): Gurjit Viveros MD [STAFF PHYSICIAN] - 07/31/24 10:00 am Esperanza Arnold MD [Primary Care Provider] - 1-2 days Patient Instructions/Handouts: A-fib (Atrial Fibrillation) (DC) Discharge Disposition: HOME SELF-CARE
[2024-07-24] MEDS ORDERED: ATORVASTATIN 20 MG TAB PO SCH (21:00)
== END 2024-07-24 13:13 | disposition home or self-care (01) ==
LOC: EC 23:35 → 3SCARD 07-23 01:09 → 6NMEDSUR 07-23 12:34
PROVIDERS: ADMIT Internal Medicine; ATTEND Internal Medicine
DX: I48.0 Paroxysmal atrial fibrillation (principal); I47.10 Supraventricular tachycardia, unspecified; I10 Essential (primary) hypertension; E78.5 Hyperlipidemia, unspecified; Z87.891 Personal history of nicotine dependence; J18.9 Pneumonia, unspecified organism; Z83.3 Family history of diabetes mellitus; Z80.1 Family history of malignant neoplasm of trachea, bronchus and lung; Z82.49 Family history of ischemic heart disease and other diseases of the circulatory system
CPT/HCPCS: 96361; 96365; 96366; 99285; 36415; 93005 ×2; 93306; 80053 ×2; 84443 ×2; 83735 ×2; 84484; 85025 ×2; 85610 ×2; 85730 ×2; 71046; G0378 ×3

== ENCOUNTER → 2024-09-17 | Outpatient (CLI) | payer MEDICARE ==
[2024-09-17 15:10] LABS: HCT 44.3 % (37.2-46.3); HGB 14.2 g/dL (12.0-15.0); MCH 30.3 pg (27.0-32.0); MCHC 32.1 g/dL (32.0-37.0); MCV 94.7 FL (80.0-97.0); Mean Platelet Volume 11.1 FL (9.5-12.2); NRBC Per 100 WBC 0 X 10*3/uL (0.00-0.01); Platelet Count 237 X 10*3/uL (140-440); RBC 4.68 X 10*6/uL (4.10-5.20); RDW 12.5 % (11.5-14.5); WBC 7.72 X 10*3/uL (4.50-10.00)
[2024-09-17 15:35] LABS: Carbon Dioxide 28.1 mmol/L (21.6-31.8); Chloride 105 mmol/L (96-109); Potassium 4.4 mmol/L (3.5-5.5); Sodium 142 mmol/L (135-145)
== END | disposition home or self-care (01) ==
LOC: LABPAT 09:12
PROVIDERS: ATTEND Internal Medicine Interventional Cardiology
DX: Z01.812 Encounter for preprocedural laboratory examination (principal); R94.39 Abnormal result of other cardiovascular function study
CPT/HCPCS: 80051; 82565; 84520; 85027

== ENCOUNTER 2024-09-25 06:12 | Day surgery (SDC) | payer MEDICARE ==
[~2024-09-25 06:12] MED LIST changes: +ALPRAZolam 0.25 MG TAB PO PRN; +ALPRAZolam 0.5 MG TAB PO PRN; +ASPIRIN 325 MG TAB PO STA; +ATORVASTATIN 80 MG TAB PO STA; +HEPARIN SODIUM,PORCINE (1 ML) 2,500 UNIT in SODIUM CHLORIDE 0.9% 250 ML IRRIGATION PRN; +HEPARIN SODIUM,PORCINE 10,000 UNIT in SODIUM CHLORIDE 0.9% 1,000 ML IRRIGATION PRN; +NITROGLYCERIN SL TABS 0.4 MG TAB SUBLINGUAL PRN; -PROPOFOL 10 MG/ML 20 ML VIAL IV ONE
[2024-09-25 06:42] VITALS: TEMP 97.8
[2024-09-25] MEDS: SODIUM CHLORIDE 0.9% 1,000 ML in EMPTY BAG 1 BAG IV SCH (06:42)
[2024-09-25] MEDS: IV FLUID CONTINUATION 1,000 ML IV ONE (06:42)
[2024-09-25] MEDS: HEPARIN SODIUM,PORCINE 10,000 UNIT in SODIUM CHLORIDE 0.9% 1,000 ML IRRIGATION ONE (07:20)
[2024-09-25] MEDS: HEPARIN SODIUM,PORCINE (1 ML) 2,500 UNIT in SODIUM CHLORIDE 0.9% 250 ML IRRIGATION ONE (07:20)
[2024-09-25] MEDS: fentaNYL (PF) 50 MCG/ML 2 ML AMP IVP ONE (07:48)
[2024-09-25] MEDS: LIDOCAINE 1% INJ 10MG/ML (20 ML MDV) SQ ONE (07:53)
[2024-09-25] MEDS: VERAPAMIL SYRINGE (5 MG/10 ML) INTRAARTER ONE (07:55)
[2024-09-25] MEDS: HEPARIN SODIUM 1,000 UN/ML (10ML VL) IVP ONE (07:58)
[2024-09-25] MEDS: IOPAMIDOL-370 100ML BTL INJ ONE (08:03)
[2024-09-25] MEDS ORDERED: RX INFO: IV CONTRAST WAS GIVEN 1 EACH MISC MISCELLANE PRN (08:25)
[2024-09-25] MEDS ORDERED: SODIUM CHLORIDE 0.9% 1,000 ML IV SCH (08:30)
--- NOTE | 2024-09-25 08:32 | P.CARDCATH ---
Date of Procedure: 09/25/24 Description of Procedure: Cardiac Catheterization: The patient is a 68-year-old female with known history of paroxysmal atrial fibrillation, hypertension, hyperlipidemia who had symptoms of dyspnea and an abnormal MPI. Recommendations were made regarding cardiac catheterization, the risks and the complications were discussed with the patient who is in full understanding and agreement. Procedure Description: Patient was brought to pharmacy laboratory technician in fasting semi-sedated state after receiving Fentanyl and Benadryl achieiving moderate conscious sedated state. Using Xylocaine Anesthesia and modified Seldinger technique, a 6-Greek sheath was introduced in the right radial artery . Subsequently, selective coronary angiography was performed using a 5-Greek 3.5 bend Edwin catheter. Multiple views of the coronary artery including hemiaxial views were obtained. The 6 Greek pigtail catheter was used to cross the aortic valve and LVEDP was calculated. Following that, catheter and sheath were removed. Hemostasis was obtained with deployment of vascular band . There was no immediate complication. Patient was returned to room in stable condition. Of note, the patient received a total of 4500 units of intravenous heparin as well as intra-arterial verapamil. Findings: Left main: This is a large size vessel, bifurcating into LAD and left circumflex, left main has no obstructive disease LAD: This is a large size vessel, reaching to the apex, giving rise to a large proximal diagonal branch. The LAD and its branches have no evidence of significant obstructive disease, mild plaque in the proximal LAD of 20 to 30% was noted with no high-grade stenosis. Left circumflex: This is a large nondominant vessel giving rise to a large obtuse marginal branch, the left circumflex and its branches have no obstructive disease RCA: This is a dominant vessel, bifurcating distally to PDA and PLV, the right c oronary artery and its branches have no evidence of significant obstructive disease. Left Ventriculogram: Not performed Hemodynamics: There was no gradient across the aortic valve, LVEDP was 16-20 mm Hg Conclusion: 1. Mild obstructive disease in the proximal LAD 2. No obstructive disease in the circumflex and RCA 3. Right dominance 4. Mildly elevated LVEDP Recommendations: I have recommended to continue medical therapy with the aggressive coronary risks modification that has been initiated. The findings and the recommendations were discussed with the patient and the family and they were in full understanding and agreement. Duration of sedation is 14 minutes.
[2024-09-25 08:59] VITALS: RESP 16
[2024-09-25] MEDS ORDERED: LOSARTAN 25 MG TAB PO SCH (09:00)
[2024-09-25] MEDS ORDERED: METOPROLOL SUCCINATE (ER) 50 MG TAB.ER.24H PO SCH (09:00)
[2024-09-25 11:44] VITALS: BP 146/74; PULSE 51
[2024-09-25] MEDS ORDERED: ROSUVASTATIN CALCIUM 10 MG PO SCH (21:00)
== END 2024-09-25 12:01 | disposition home or self-care (01) ==
LOC: CATHCVL 06:12
PROVIDERS: ATTEND Internal Medicine Interventional Cardiology
DX: I35.0 Nonrheumatic aortic (valve) stenosis (principal); I48.0 Paroxysmal atrial fibrillation; I10 Essential (primary) hypertension; E78.2 Mixed hyperlipidemia; E78.5 Hyperlipidemia, unspecified; F17.210 Nicotine dependence, cigarettes, uncomplicated; Z82.49 Family history of ischemic heart disease and other diseases of the circulatory system; Z79.899 Other long term (current) drug therapy
CPT/HCPCS: 93458; J1644 ×3; J2003; J3010; Q9967

== ENCOUNTER → 2024-12-19 | Outpatient (CLI) | payer MEDICARE ==
[2024-12-19 16:16] LABS: ALT 26 U/L (8-44); AST 23 U/L (13-35); Chol/HDL Ratio 3.98 Ratio; LDL Cholesterol,Calculated 100.8 mg/dL (0.0-131.0)
== END | disposition home or self-care (01) ==
LOC: LABWHC1 09:40
PROVIDERS: ATTEND Internal Medicine Interventional Cardiology
DX: E78.2 Mixed hyperlipidemia (principal)
CPT/HCPCS: 36415; 80061; 84450; 84460